=== PATIENT | male | born 1985 | race Caucasian/White ===

== ENCOUNTER 2018-04-14 16:44 | Emergency (ER) | payer MEDICAID, SELFPAY ==
[~2018-04-14] VITALS: Ht 188 cm; Wt 172.7 kg
[2018-04-14 19:44] LABS: BASO % 0.4 % (0.0-1.0); EOS # 0.3 10^3/uL (0.0-0.50); HEMATOCRIT 44.6 % (42.0-52.0); HEMOGLOBIN 14.9 g/dl (13.5-17.5); LYMPH # 2.4 10^3/uL (1.5-4.5); LYMPH % 22.8 % (24.0-44.0); MEAN CORPUSCULAR HEMOGLOBIN 28.2 pg (27.0-33.0); MEAN CORPUSCULAR HGB CONC 33.4 g/dl (32.0-36.5); MEAN CORPUSCULAR VOLUME 84.3 fl (80.0-96.0); MONO # 0.8 10^3/uL (0.0-0.8); MONO % 7.3 % (0.0-5.0); NEUTROPHILS % 66.1 % (36.0-66.0); PLATELET COUNT, AUTOMATED 369 10^3/uL (150-450); RED BLOOD COUNT 5.29 10^6/uL (4.30-6.10); WHITE BLOOD COUNT 10.6 10^3/uL (4.0-10.0)
[2018-04-14 19:46] LABS: APPEARANCE, URINE CLEAR (CLEAR); BACTERIA, URINE AUTO NEGATIVE (NEGATIVE); BILIRUBIN, URINE AUTO NEGATIVE (NEGATIVE); BLOOD, URINE BLOOD NEGATIVE (NEGATIVE); COLOR, URINE YELLOW (YELLOW); GLUCOSE, URINE (UA) AUTO NEGATIVE (NEGATIVE); KETONE, URINE AUTO NEGATIVE (NEGATIVE); LEUKOCYTE ESTERASE, URINE AUTO NEGATIVE (NEGATIVE); NITRITE, URINE AUTO NEGATIVE (NEGATIVE); PROTEIN, URINE AUTO NEGATIVE (NEGATIVE); RBC, URINE AUTO 1 /HPF (0-3); SPECIFIC GRAVITY URINE AUTO 1.019 (1.002-1.035); SQUAMOUS EPITHELIAL CELL UR AU 0 /HPF (0-6); UROBILINOGEN, URINE AUTO 0.2 mg/dL (0.0-2.0); WBC, URINE AUTO 0 /HPF (0-3)
[2018-04-14 19:56] LABS: ALBUMIN 3.5 GM/DL (3.2-5.2); ALT/SGPT 74 U/L (12-78); BILIRUBIN,DIRECT < 0.1 MG/DL (0.0-0.2); BILIRUBIN,TOTAL 0.2 MG/DL (0.2-1.0); BLOOD UREA NITROGEN 13 MG/DL (7-18); CALCIUM LEVEL 8.5 MG/DL (8.5-10.1); CARBON DIOXIDE LEVEL 25 MEQ/L (21-32); CHLORIDE LEVEL 108 MEQ/L (98-107); CK-MB VALUE MASS < 1.0 NG/ML (<3.6); CPK CREATINE PHOSPHOKINASE 63 U/L (39-308); CREATININE FOR GFR 0.76 MG/DL (0.70-1.30); GLOMERULAR FILTRATION RATE > 60.0 (>60); GLUCOSE, FASTING 98 MG/DL (70-100); MB/CK RELATIVE INDEX 1.59 (< OR =4); NT-PRO BNP 28 PG/ML (<125); POTASSIUM SERUM 4.2 MEQ/L (3.5-5.1); SODIUM LEVEL 143 MEQ/L (136-145); TOTAL PROTEIN 7.5 GM/DL (6.4-8.2); TROPONIN I < 0.02 NG/ML (< 0.10)
--- NOTE | 2018-04-14 20:29 | REP ---
Clinical: Pulmonary edema . Comparison: None . Technique: PA and lateral. Findings: The mediastinum and cardiac silhouette are normal. The lung graham are clear and without acute consolidation, effusion, or pneumothorax. The skeletal structures are intact and normal. Impression: 1. No acute cardiopulmonary process. Electronically Signed by Nikhil Hoyt MD 04/14/2018 08:21 P
--- NOTE | 2018-04-14 20:50 | REPVR ---
EXAM: US Bilateral Duplex Lower Extremity Veins EXAM DATE/TIME: 04/14/2018 8:02 PM CLINICAL HISTORY: 32 years old, male; Pain; Leg, upper; Bilateral; Additional info: Edema, pain TECHNIQUE: Real-time duplex ultrasound of the Bilateral Lower Extremities with 2-D rodriguez scale, color Doppler flow and spectral waveform analysis. Complete exam focused on the bilateral lower extremity veins. COMPARISON: No relevant prior studies available. FINDINGS: Right deep veins: Unremarkable. The common femoral, femoral, proximal profunda femoral and popliteal veins are patent without thrombus. Normal compressibility, augmentation response and Doppler waveforms. Right superficial veins: Saphenofemoral junction is patent without thrombus. Left deep veins: Unremarkable. The common femoral, femoral, proximal profunda femoral and popliteal veins are patent without thrombus. Normal compressibility, augmentation response and Doppler waveforms. Left superficial veins: Saphenofemoral junction is patent without thrombus. Soft tissues: Unremarkable. IMPRESSION: Negative bilateral lower extremity venous duplex exam without evidence of deep venous thrombosis. Electronically signed by: Abad Lopez On 04/14/2018 20:49:56 PM
[2018-04-14 21:13] VITALS: BP 160/102
[2018-04-14] MEDS ORDERED: HYDR25TAB PO (21:37)
--- NOTE | 2018-04-15 10:46 | ECGEPIP ---
Stationary ECG Study [facility] - ED Test Date: 2018-04-14 Pat Name: LIZABETH CARTER Department: Room: - Gender: M [employer]: [facility] : [id number] Requested By: JAKOB MAX PA-C. Order Number: [id number] Reading MD: Georgina Lal Measurements Intervals [place] Rate: 95 P: 44 WA: 200 QRS: 24 QRSD: 70 T: 34 QT: 342 QTc: 430 Interpretive Statements SINUS RHYTHM NO PRIOR FOR COMPARISON Electronically Signed On 04-15-2018 10:45:33 EST by Georgina Lal
== END 2018-04-14 21:47 | disposition home or self-care (01) ==
LOC: M ED 16:44
DX: R60.9 Edema, unspecified (principal); I87.2 Venous insufficiency (chronic) (peripheral); R03.0 Elevated blood-pressure reading, without diagnosis of hypertension; E66.9 Obesity, unspecified; F17.210 Nicotine dependence, cigarettes, uncomplicated

== ENCOUNTER 2020-11-16 12:42 | Emergency (ER) | payer MEDICAID, SELFPAY ==
[~2020-11-16] VITALS: Ht 188 cm; Wt 216.3 kg
[~2020-11-16 12:42] MED LIST: HYDR-3490 PO
--- NOTE | 2020-11-16 13:21 | REP ---
INDICATION: stroke r/o COMPARISON: None. TECHNIQUE: Axial noncontrast images from the skull base to the vertex with coronal reformations. This CT examination was performed using the following dose reduction techniques: Automated exposure control, adjustment of mA and/or kv according to the patient's size, and use of iterative reconstruction technique. FINDINGS: There is vague poorly identified low-density changes involving the right cerebellum which appears to extend and wide in through the right jugular foramen. While underlying infarction cannot be excluded, mass must be considered as well. No prior examinations are available for comparison and pre and postcontrast MRI should be obtained for further investigation. Remainder of the examination appears normal. No further acute intracranial mass/mass effect, edema or hemorrhage identified. The lateral ventricles are symmetric and normal. There is no evidence for hydrocephalus. No extra-axial fluid collection. Calvarium is intact. Paranasal sinuses and mastoid air cells are clear. IMPRESSION: Irregular low-density involving the right cerebellar hemisphere with caudal extension through a dilated right jugular foramen most suspicious for mass. Pre and postcontrast MRI is recommended for further investigation. <Electronically signed by Nikhil Hoyt > 11/16/20 [id number]
[2020-11-16 14:02] LABS: BASO # 0.1 10^3/uL (0.0-0.2); BASO % 0.5 % (0.0-1.0); EOS # 0.2 10^3/uL (0.0-0.5); EOS % 1.6 % (0.0-3.0); HEMATOCRIT 49.4 % (42.0-52.0); HEMOGLOBIN 16.1 g/dl (13.5-17.5); LYMPH # 2.1 10^3/uL (1.5-5.0); LYMPH % 23.2 % (24.0-44.0); MEAN CORPUSCULAR HEMOGLOBIN 27.9 pg (27.0-33.0); MEAN CORPUSCULAR HGB CONC 32.6 g/dl (32.0-36.5); MEAN CORPUSCULAR VOLUME 85.5 fl (80.0-96.0); MONO # 0.8 10^3/uL (0.0-0.8); MONO % 8.2 % (2.0-8.0); PLATELET COUNT, AUTOMATED 370 10^3/uL (150-450); RED BLOOD COUNT 5.78 10^6/uL (4.30-6.10); WHITE BLOOD COUNT 9.2 10^3/uL (4.0-10.0)
[2020-11-16] MEDS ORDERED: dexameTHASONE 20MG/5ML VIAL (J1100 PER 1MG) IV ONE (15:30)
[2020-11-16] MEDS ORDERED: NS 1,000 ML IV SCH (15:30)
[2020-11-16 16:45] VITALS: BP 120/69
== END 2020-11-16 16:46 | disposition short-term general hospital (02) ==
LOC: M ED 12:42
DX: G93.9 Disorder of brain, unspecified (principal); G51.0 Bell's palsy; R42 Dizziness and giddiness
CPT/HCPCS: 70450; 80047; 85025; 93041; 96361; 96374; 99285; J1100; U0002

== ENCOUNTER → 2021-05-02 | Outpatient (CLI) | payer OTHER | LOC: M RAD 14:02 | PROVIDERS: ATTEND Neurological Surgery | DX: R51.9 Headache, unspecified (principal); D33.3 Benign neoplasm of cranial nerves ==

== ENCOUNTER → 2022-09-24 | Outpatient (CLI) | payer OTHER | LOC: M ONCR 13:27 | PROVIDERS: ATTEND General Practice | DX: D33.3 Benign neoplasm of cranial nerves (principal); K21.9 Gastro-esophageal reflux disease without esophagitis; I10 Essential (primary) hypertension; M54.9 Dorsalgia, unspecified; Z71.2 Person consulting for explanation of examination or test findings ==

== ENCOUNTER 2022-10-06 13:07 | Outpatient (RCR) | payer OTHER | END 2022-10-19 | LOC: M ONCR 13:07 | PROVIDERS: ATTEND General Practice | DX: D33.3 Benign neoplasm of cranial nerves (principal) ==

== ENCOUNTER 2022-10-20 10:37 | Outpatient (RCR) | payer OTHER | END 2022-11-19 | LOC: M ONCR 10:37 | PROVIDERS: ATTEND General Practice | DX: Z51.0 Encounter for antineoplastic radiation therapy (principal); D33.3 Benign neoplasm of cranial nerves ==

== ENCOUNTER → 2022-12-28 | Outpatient (CLI) | payer OTHER ==
[~2022-12-28] MED LIST changes: +PROHANCE 279.3MG/ML 15ML VIAL As Ordered ONE; +PROHANCE 279.3MG/ML 5ML VIAL As Ordered ONE
== END ==
LOC: M RAD 11-27 12:15
PROVIDERS: ATTEND General Practice
DX: D33.3 Benign neoplasm of cranial nerves (principal); G93.89 Other specified disorders of brain
CPT/HCPCS: 70553; A9576

== ENCOUNTER → 2023-01-19 | Outpatient (RCR) | payer OTHER ==
[~2023-01-19] MED LIST changes: -PROHANCE 279.3MG/ML 15ML VIAL As Ordered ONE; -PROHANCE 279.3MG/ML 5ML VIAL As Ordered ONE
== END ==
LOC: M ONCR 12-31 15:14
PROVIDERS: ATTEND General Practice
DX: Z51.0 Encounter for antineoplastic radiation therapy (principal); D33.3 Benign neoplasm of cranial nerves

== ENCOUNTER 2023-01-22 12:24 | Outpatient (RCR) | payer OTHER | END 2023-02-18 | LOC: M ONCR 12:24 | PROVIDERS: ATTEND General Practice | DX: Z51.0 Encounter for antineoplastic radiation therapy (principal); D33.3 Benign neoplasm of cranial nerves ==